=== PATIENT | male | born 1985 | race Caucasian/White ===

== ENCOUNTER 2023-03-14 14:38 | Emergency (ER) | payer OTHER ==
[~2023-03-14] VITALS: Ht 177.8 cm; Wt 98.9 kg
[2023-03-14] MEDS ORDERED: [UNRECOGNIZED DRUG - OTHER] TOP (16:42)
[2023-03-14] MEDS ORDERED: XOLEGEL45 GM TOP (16:42)
== END 2023-03-14 16:58 | disposition home or self-care (01) ==
LOC: ER 14:38
DX: B35.9 Dermatophytosis, unspecified (principal)